=== PATIENT | female | born 1975 | race Caucasian/White ===

== ENCOUNTER 2024-01-28 08:41 | Day surgery (SDC) | payer OTHER ==
[~2024-01-28] VITALS: Ht 165.1 cm; Wt 72.6 kg
[2024-01-28] MEDS ORDERED: fentaNYL citrate 0.05 MG/ML VIAL ONE (09:38)
[2024-01-28] MEDS ORDERED: MIDAZOLAM 2 MG/2 ML VIAL ONE (09:38)
[2024-01-28] MEDS: MIDAZOLAM 2 MG/2 ML VIAL IVP ONE (09:52)
== END 2024-01-28 11:10 | disposition home or self-care (01) ==
LOC: MDS 08:41 → MMU 08:41 → MDS 11:10
PROVIDERS: ATTEND Internal Medicine Gastroenterology
DX: K31.A0 Gastric intestinal metaplasia, unspecified (principal); K21.9 Gastro-esophageal reflux disease without esophagitis; K31.7 Polyp of stomach and duodenum; K29.70 Gastritis, unspecified, without bleeding; I10 Essential (primary) hypertension; Z86.010 Personal history of colon polyps; Z90.49 Acquired absence of other specified parts of digestive tract; Z91.040 Latex allergy status; Z79.899 Other long term (current) drug therapy; Z98.890 Other specified postprocedural states
CPT/HCPCS: 43235; J2250; J3010